=== PATIENT | female | born 1985 | race Caucasian/White ===

== ENCOUNTER 2022-01-04 20:50 | Outpatient (CLI) | payer SELFPAY ==
[2022-01-04 22:20] VITALS: BP 130/67; PULSE 97; RESP 16; TEMP 98.2
--- NOTE | 2022-01-04 22:30 | US ---
EXAMINATION TYPE: US OB >= 14 wk fetus DATE OF EXAM: 01/04/2022 COMPARISON: None CLINICAL HISTORY: no care overdue; TECHNIQUE: Transabdominal (TA) GESTATIONAL AGE / DATING Physician Established: Not yet established Dates by LMP: LMP unknown Dates by First Scan: No previous here Dates by Current Scan: (39 weeks/6 days) EDC: 01/05/2022 Beta HCG (if available): NA SURVEY IUP: Single PLACENTA: fundal posterior PREVIA: No Previa LUIS: 13.9 cm Normal CERVICAL LENGTH (transabdominal: norm > 3.0cm): 3.3 cm, however, skull posterior shadowing limi ts cervix visualization BIOMETRY PRESENTATION: cephalic LIE: Longitudinal BPD: 9.6 cm 39 weeks / 0 days HC: 34.8 cm 40 weeks / 2 days AC: 36.5 cm 10 weeks / 3 days FL: 7.9 cm 40 weeks / 2 days ESTIMATED WEIGHT IN GRAMS: 4015.0 grams ESTIMATED WEIGHT IN LBS/OZ: 8 lbs. 14 oz. WEIGHT PERCENTAGE BASED ON ESTABLISHED DATES: NA as LMP unknown and no prior US HC/AC: 0.95 Normal FL/AC: 21.63 Normal HEART RATE: 160 bpm RHYTHM: Normal Single, viable IUP, 39 weeks/6 days, EDC: 01/05/2022 , [id number]. IMPRESSION: Amniotic fluid is adequate. Estimated weight is over 4000 g. No complicating process seen.
--- NOTE | 2022-01-08 08:09 | P.MSEPDOC ---
Presenting Problems - Arrival Data Date of Arrival on Unit: 01/04/22 Time of Arrival on Unit: 20:50 Mode of Transport: Portable - Complaint OB-Reason for Admission/Chief Complaint: Other Comment: pt. congregation, no care, pt. overdue unsure of due date, came in thinking she could be induced Medical History - Information : 8 Para: 7 Term: 7 : 0 Abortions: Spontaneous or Elective: 0 Number of Living Children: 7 - Gestational Age Gestational Age by JUAN LUIS (wks/days): 43 Weeks and 4 Days - History Complications: No Care Review of Systems - Review of Systems Constitutional: No problems Breast: No problems ENT: No problems Cardiovascular: No problems Respiratory: No problems Gastrointestinal: No problems Genitourinary: No problems Musculoskeletal: No problems Neurological: No problems Skin: No problems Vital Signs - Temperature Temperature: 98.2 F Temperature Source: Temporal Artery Scan - Pulse Pulse Oximetery Pulse Rate: 97 Pulse Assessment Method: Automatic Cuff - Respirations Respiratory Rate: 16 Oxygen Delivery Method: Room Air O2 Sat by Pulse Oximetry: 98 - Blood Pressure Right Arm Blood Pressure: 130/67 Blood Pressure Mean: 88 Blood Pressure Source: Automatic Cuff Medical Screen Scoring - Cervical Exam Dilation (cm): 4 Effacement (%): 50 Station: -2 Membranes: Intact - Assessment - Baby A Baseline FHR: 150 Heart Rate - NICHD Category: Category I (Normal) NST: Reactive Physician Notification - Physician Notified Physician Notified Date: 01/04/22 Physician Notified Time: 21:08 Physician: Monalisa Ivory Order Received: Yes - Notification Comment Comment: Ultrasound and blood work ordered, pt. refusing blood work, 22:06 Dr. Ivory notified of ultrasound results, cervix unchanged pt. requesting to go home, orders to discharge patient Maternal Triage Index - Maternal Triage Index Presenting for scheduled procedure w/no complaint: No - Stat/Priority 1 Stat Priority 1: No - Urgent/Priority 2 Urgent Priority 2: No - Prompt/Priority 3 Prompt Priority 3: No - Non-Urgent/Priority 4 Non-Urgent Priority 4: Yes Criteria Met for Priority 4: pt. congregation, no care, pt. overdue unsure of due date, came in thinking she could be induced, no contractions, pt. denies any complications with past and current , orders for a complete ultrasound, and blood work, pt. refusing the blood work but okay with ultrasound. Disposition - Disposition OB Disposition: Discharge to home Discharge Date: 01/04/22 Discharge Time: 22:12 I agree with the RN Medical Screening Exam: Yes Case reviewed; plan agreed upon as documented in EMR&OBIX.: Yes Diagnosis: POST-TERM
== END 2022-01-04 22:12 | disposition home or self-care (01) ==
LOC: FBPOP 20:50
PROVIDERS: ATTEND Obstetrics & Gynecology
DX: O48.1 Prolonged pregnancy (principal)
CPT/HCPCS: 59025; 76805; 99213